=== PATIENT | male | born 1960 | race Caucasian/White ===

== ENCOUNTER → 2016-06-14 | Outpatient (CLI) | payer OTHER | LOC: CLAB 10:34 | PROVIDERS: ATTEND Specialist | DX: B18.2 Chronic viral hepatitis C (principal); Z79.899 Other long term (current) drug therapy | CPT/HCPCS: 36415; 82140 ==

== ENCOUNTER → 2017-06-11 | Outpatient (CLI) | payer OTHER | LOC: CLAB 10:58 | PROVIDERS: ATTEND Specialist | DX: B18.2 Chronic viral hepatitis C (principal); R74.8 Abnormal levels of other serum enzymes; Z79.899 Other long term (current) drug therapy | CPT/HCPCS: 36415; 82140 ==